=== PATIENT | female | born 1970 ===

== ENCOUNTER 2020-10-27 16:41 | Inpatient (IN) | payer MEDICAID ==
[2020-10-27] MEDS ORDERED: traZODone 100 MG TAB PO SCH (23:42)
[2020-10-27] MEDS ORDERED: hydrOXYzine PAMOATE 25 MG CAP PO PRN (23:42)
[2020-10-28 18:53] LABS: Bilirubin,Urine NEG (Negative); Blood,Urine NEG (Negative); Color,Urine Yellow (Yellow); Protein,Urine <15 mg/dL mg/dL (Negative); Urobilinogen,Urine < 2.0 mg/dL (<2.0)
[2020-10-28 19:07] LABS: RBC,Urine < 1.0 /HPF (0.0-6.0)
[2020-10-28 19:45] LABS: Basophils % (Auto) 0.6 % (0.0-1.8); Eosinophils # (Auto) 0.3 K/mm3 (0.0-0.4); Eosinophils % (Auto) 4.5 % (0.0-4.3); Hematocrit 41.8 % (30.3-42.9); Hemoglobin 14.2 gm/dl (10.1-14.3); Lymphocytes # (Auto) 2.8 K/mm3 (1.2-5.4); Lymphocytes % (Auto) 39.9 % (13.4-35.0); Mean Corpuscular HGB Conc 34 % (30-34); Mean Corpuscular Volume 87 fl (79-97); Monocytes # (Auto) 0.5 K/mm3 (0.0-0.8); Monocytes % (Auto) 6.8 % (0.0-7.3); Platelet Count 201 K/mm3 (140-440); Red Cell Distribution Width 14.4 % (13.2-15.2)
[2020-10-28 20:04] LABS: Alanine Aminotransferase 14 units/L (7-56); Albumin 4.1 g/dL (3.9-5); Blood Urea Nitrogen 15 mg/dL (7-17); Calcium 9.4 mg/dL (8.4-10.2); Chol/HDL Ratio 4.29 %; HDL Cholesterol 51 mg/dL (40-59); Hemolysis Index 12; LDL Cholesterol,Direct 161 mg/dL (50-130)
[2020-10-28 20:05] LABS: BUN/Creatinine Ratio 21
[2020-10-28] MEDS: MIRTAZAPINE 15 MG TAB PO SCH ×2 (21:03→21:14)
--- NOTE | 2020-10-29 09:37 | History and Physical Report ---
GP History & Physical - History of Present Illness Date of admission: 10/28/20 Date of Examination: 10/29/20 Reason for Admission: Danger to self, Failure of Outpatient Treatment History of Present Illness: Per Admission Note: Pt observed interacting appropriately with peer in the day room on mortgage underwriter's first encounter with pt. 50 y/o WF a&oX4. States, "I feel a lot better." Reports no suicide thought at the time of interview and was calm and cooperative. Noted with hx/o Hypothyroidism, Asthma,, left knee surgery, bipolar, schizoaffective d/o, COVID-19 + in August 2020. Pt noted with active UTI and started on Macrobid abx. Denies AV/H and none observed. End daily smoking of 1/2 pack of cigarette. Pt also reports abusing "Crack" cocaine and Marijuana with last use 2-3 weeks ago. No acute distress observed and none reported. Benjy Herrera is a 50y/o female patient who was admitted to [facility] for suicidal thoughts. During my interview with the patient she is calm, cooperative and pleasant. The patient states "I wanted to kill myself and didn't have a reason to live." She states she "feels much better." She denies SI/HI. When asked what has changed between now and her admission, she states "I don't know. I just don't feel suicidal anymore." The patient denies hallucinations of any kind. She denies any illicit drug use, alcohol or nicotine. She says she has a diagnosis of schizoaffective disorder and takes Invega Sustenna 156mg. The patient says she had her injection a few days ago. PAST PSYCHIATRIC HISTORY: Diagnoses: Schizoaffective Suicide attempts or Self-harm behavior: yes Prior psychiatric hospitalizations: yes Substance Abuse history: denies Previous psychiatric medications tried: invega Outpatient treatment: Denies PAST MEDICAL HISTORY: Diabetes Family Psychiatric History: None reported or documented SOCIAL HISTORY Marital Status: single Living Arrangements: [facility] Employment Status: Unemployed Access to guns/weapons: Denies Education: high school History of Abuse: Denies Legal History: Denies REVIEW OF SYSTEMS Constitutional: Negative for weight loss ENT: Negative for stridor Respiratory: Negative for cough or hemoptysis All other systems reviewed and are negative MENTAL STATUS EXAMINATION General Appearance and Behavior: Age appropriate, good hygiene, not wearing appropriate clothes, good eye contact, cooperative polite with questioning. Cooperation: Participating/engaged Psychomotor Behavior: Psychomotor normal Mood: "much better" Affect and affective range: Euthymic Thought Process: Goal directed Speech: Normal tone and pace Intellectual Functioning: Average Thought Content Suicidal Ideation: Denies Homicidal Ideation: Denies Hallucinations: Denies Delusions: None elicited Impulse Control: Impaired Insight and Judgment: Limited insight and judgment Memory: Normal Attention: Divided attention impaired Orientation: A/o x 3 Assessment and Plan (1) Major Depressive Disorder Current Visit: Yes Status: Acute Treatment Plan Patient admitted for inpatient psychiatric evaluation, medication adjustment and close monitoring The patient's behavior, mood, sleep and appetite will be closely monitored. Patient enrolled in individual and group therapeutic sessions and encouraged to attend. Patient provided with a safe and structured environment. Patient's physical health needs will be addressed by the Hospitalist. Hospitalist Consulted Labs including CBC, CMP, Lipid profile and Hemoglobin A1C levels ordered for baseline reference Social Assessment will be completed and the Cooker Cleaner will work with patient and family to ensure a suitable and safe disposition Medication adjustment will be made as clinically indicated Start Zoloft 25mg po daily Restart Home medications Usual Wellness Confucianism/Preservation: - Start Trazodone 50 mg po QHS & 50 mg po QHS PRN between 10 PM & 2 AM for insomnia - Start Melatonin 5 mg po QHS to promote circadian rhythm - Start Thelma-3 for brain health, reduce impulsivity, and as adjunctive treatment for mood disorder, continue upon discharge given overall benefits. - Start B1 prophylaxis with 200 mg po for 5 days The patient agreed on the treatment plan, understood the risk, benefit, alternative treatment, potential consequence of no treatment, and gave informed consent. Estimated days: 7 Post hospital care: primary care provider, psychiatric provider Legal Status: Voluntary Reaction to Hospitalization: Accepting Medications and Allergies Allergies Allergy/AdvReac Type Severity Reaction Status Date / Time No Known Allergies Allergy Unverified 10/27/20 16:47 Home Medications Medication Instructions Recorded Confirmed Last Taken Type Mirtazapine [Remeron] 15 mg PO HS 10/27/20 10/27/20 Unknown History hydrOXYzine PAMOATE [Vistaril] 25 mg PO Q6HR PRN 10/27/20 10/27/20 Unknown History traZODone [Desyrel] 100 mg PO QHS 10/27/20 10/27/20 Unknown History Levothyroxine [Synthroid] 25 mcg PO QAM 10/28/20 10/28/20 Unknown History Active Meds: Active Medications Hydroxyzine Pamoate (Hydroxyzine Pamoate 25 Mg Cap) 25 mg PO Q6H PRN PRN Reason: Anxiety Mirtazapine (Mirtazapine 15 Mg Tab) 15 mg PO QHS [facility] Last Admin: 10/28/20 21:14 Dose: Not Given Documented by: Trazodone HCl (Trazodone 100 Mg Tab) 100 mg PO QHS [facility] Last Admin: 10/28/20 21:02 Dose: 100 mg Documented by: Results - Results Labs/Vitals: Laboratory Last Values WBC 7.1 K/mm3 (4.5-11.0) 10/28/20 19:04 RBC 4.80 M/mm3 (3.65-5.03) 10/28/20 19:04 Hgb 14.2 gm/dl (10.1-14.3) 10/28/20 19:04 Hct 41.8 % (30.3-42.9) 10/28/20 19:04 MCV 87 fl (79-97) 10/28/20 19:04 MCH 30 pg (28-32) 10/28/20 19:04 MCHC 34 % (30-34) 10/28/20 19:04 RDW 14.4 % (13.2-15.2) 10/28/20 19:04 Plt Count 201 K/mm3 (140-440) 10/28/20 19:04 Lymph % (Auto) 39.9 % (13.4-35.0) H 10/28/20 19:04 [place] % (Auto) 6.8 % (0.0-7.3) 10/28/20 19:04 Eos % (Auto) 4.5 % (0.0-4.3) H 10/28/20 19:04 Baso % (Auto) 0.6 % (0.0-1.8) 10/28/20 19:04 Lymph # (Auto) 2.8 K/mm3 (1.2-5.4) 10/28/20 19:04 [place] # (Auto) 0.5 K/mm3 (0.0-0.8) 10/28/20 19:04 Eos # (Auto) 0.3 K/mm3 (0.0-0.4) 10/28/20 19:04 Baso # (Auto) 0.0 K/mm3 (0.0-0.1) 10/28/20 19:04 Seg Neutrophils % 48.2 % (40.0-70.0) 10/28/20 19:04 Seg Neutrophils # 3.4 K/mm3 (1.8-7.7) 10/28/20 19:04 Sodium 137 mmol/L (137-145) 10/28/20 19:04 Potassium 4.0 mmol/L (3.6-5.0) 10/28/20 19:04 Chloride 101.4 mmol/L (98-107) 10/28/20 19:04 Carbon Dioxide 27 mmol/L (22-30) 10/28/20 19:04 Anion Gap 13 mmol/L 10/28/20 19:04 BUN 15 mg/dL (7-17) 10/28/20 19:04 Creatinine 0.7 mg/dL (0.6-1.2) 10/28/20 19:04 Estimated GFR > 60 ml/min 10/28/20 19:04 BUN/Creatinine Ratio 21 % 10/28/20 19:04 Glucose 95 mg/dL (65-100) 10/28/20 19:04 POC Glucose 89 mg/dL (70-105) 10/29/20 06:48 Hemoglobin A1c 5.3 % (4-6) 10/28/20 19:04 Calcium 9.4 mg/dL (8.4-10.2) 10/28/20 19:04 Total Bilirubin < 0.20 mg/dL (0.1-1.2) 10/28/20 19:04 AST 14 units/L (5-40) 10/28/20 19:04 ALT 14 units/L (7-56) 10/28/20 19:04 Alkaline Phosphatase 97 units/L (35-129) 10/28/20 19:04 Total Protein 7.1 g/dL (6.3-8.2) 10/28/20 19:04 Albumin 4.1 g/dL (3.9-5) 10/28/20 19:04 Albumin/Globulin Ratio 1.4 % 10/28/20 19:04 Triglycerides 159 mg/dL (2-149) H 10/28/20 19:04 Cholesterol 219 mg/dL (50-199) H 10/28/20 19:04 LDL Cholesterol Direct 161 mg/dL (50-130) H 10/28/20 19:04 HDL Cholesterol 51 mg/dL (40-59) 10/28/20 19:04 Cholesterol/HDL Ratio 4.29 % 10/28/20 19:04 TSH 6.610 mlU/mL (0.270-4.200) H 10/28/20 19:04 Urine Color Yellow (Yellow) 10/27/20 18: Urine Turbidity Clear (Clear) 10/27/20 18: Urine pH 7.0 (5.0-7.0) 10/27/20 18: Ur Specific [place] 1.017 (1.003-1.030) 10/27/20 18: Urine Protein <15 mg/dl mg/dL (Negative) 10/27/20 18: Urine Glucose (UA) Neg mg/dL (Negative) 10/27/20 18: Urine Ketones Neg mg/dL (Negative) 10/27/20 18:29 Urine Blood Neg (Negative) 10/27/20 18:29 Urine Nitrite Neg (Negative) 10/27/20 18: Urine Bilirubin Neg (Negative) 10/27/20 18: Urine Urobilinogen < 2.0 mg/dL (<2.0) 10/27/20 18:29 Ur Leukocyte Esterase Neg (Negative) 10/27/20 18:29 Urine WBC (Auto) 1.0 /HPF (0.0-6.0) 10/27/20 18: Urine RBC (Auto) < 1.0 /HPF (0.0-6.0) 10/27/20 18: U Epithel Cells (Auto) 2.0 /HPF (0-13.0) 10/27/20 18:29 Last Vital Signs Temp 98.8 F 10/28/20 21:35 Pulse 81 10/28/20 21:35 Resp 16 10/28/20 21:35 BP 115/79 10/28/20 21:35 Pulse Ox 95 10/28/20 21:35 Physical Examination - Constitutional Vitals: Vital Signs Temp Pulse Resp BP Pulse Ox 98.8 F 81 16 115/79 95 10/28/20 21:35 10/28/20 21:35 10/28/20 21:35 10/28/20 21:35 10/28/20 21:35 Temperature -Last 24 Hours Temperature 98.8 F Mental Status Exam - Vital signs Last Vital Signs Temp 98.8 F 10/28/20 21:35 Pulse 81 10/28/20 21:35 Resp 16 10/28/20 21:35 BP 115/79 10/28/20 21:35 Pulse Ox 95 10/28/20 21:35 Physician Certification - Certification Statement Physician Certification Statement: This is an acknowledgement statement that BENJY HERRERA is a 50 year old F who requires inpatient psychiatric admission for treatment which could reasonably be expected to improve the patient's condition for Estimated period of time patient will need to remain in the hospital: [ ] Plan for post-hospital care: [ ]
[2020-10-29] MEDS ORDERED: hydrOXYzine PAMOATE 25 MG CAP PO PRN (09:42)
[2020-10-29] MEDS ORDERED: NITROFURANTOIN MONOHYD/M-CRYST 100 MG CAP PO SCH (11:00)
[2020-10-29] MEDS: SERTRALINE 25 MG TAB PO SCH (12:40)
[2020-10-29] MEDS: LEVOTHYROXINE 25 MCG TAB PO SCH (12:40)
[2020-10-29] MEDS: traZODone 100 MG TAB PO SCH (21:46)
[2020-10-29] MEDS: MIRTAZAPINE 15 MG TAB PO SCH (21:46)
[2020-10-30] MEDS: LEVOTHYROXINE 25 MCG TAB PO SCH (05:30)
--- NOTE | 2020-10-30 09:05 | Progress Note ---
Subjective Date of service: 10/30/20 Principal diagnosis: Schizophrenia Subjective Comment: Per Nurse Note: pt spent the evening in activity room interacting with peers and coloring, pt is alert and orientedx4, calm and cooperative, able to make needs known, bright affect, stable mood, reported feeling better, denies si/hi, denies a/v/h, selective with medication, refused trazodone, pt stated that trazodone makes her leg to jump, good appetite, no distress noted, will monitor for safety. The patient was seen today, she is sitting in the dayroom. She is a/o x 3. She is calm, cooperative and pleasant. She says she is doing "great, wonderful." She says "I don't want to kill myself and I'm not having hallucinations." REVIEW OF SYSTEMS Constitutional: Negative for weight loss ENT: Negative for stridor Respiratory: Negative for cough or hemoptysis All other systems reviewed and are negative MENTAL STATUS EXAMINATION General Appearance and Behavior: Age appropriate, good hygiene, not wearing appropriate clothes, good eye contact, cooperative polite with questioning. Cooperation: Participating/engaged Psychomotor Behavior: Psychomotor normal Mood: "much better" Affect and affective range: Euthymic Thought Process: Goal directed Speech: Normal tone and pace Intellectual Functioning: Average Thought Content Suicidal Ideation: Denies Homicidal Ideation: Denies Hallucinations: Denies Delusions: None elicited Impulse Control: Impaired Insight and Judgment: Limited insight and judgment Memory: Normal Attention: Divided attention impaired Orientation: A/o x 3 Assessment and Plan (1) Major Depressive Disorder (2) Schizophrenia Treatment Plan Patient admitted for inpatient psychiatric evaluation, medication adjustment and close monitoring The patient's behavior, mood, sleep and appetite will be closely monitored. Patient enrolled in individual and group therapeutic sessions and encouraged to attend. Patient provided with a safe and structured environment. Patient's physical health needs will be addressed by the Hospitalist. Hospitalist Consulted Labs including CBC, CMP, Lipid profile and Hemoglobin A1C levels ordered for baseline reference Social Assessment will be completed and the Wall Man will work with patient and family to ensure a suitable and safe disposition Medication adjustment will be made as clinically indicated Start Zoloft 25mg po daily yesterday Usual Wellness Congregation/Preservation: - Start Trazodone 50 mg po QHS & 50 mg po QHS PRN between 10 PM & 2 AM for insomnia - Start Melatonin 5 mg po QHS to promote circadian rhythm - Start Weiner-3 for brain health, reduce impulsivity, and as adjunctive treatment for mood disorder, continue upon discharge given overall benefits. - Start B1 prophylaxis with 200 mg po for 5 days The patient agreed on the treatment plan, understood the risk, benefit, alternative treatment, potential consequence of no treatment, and gave informed consent. Estimated days: 1 Post hospital care: primary care provider, psychiatric provider Case staffed with Dr. Gibson Medications and Allergies Allergies Allergy/AdvReac Type Severity Reaction Status Date / Time No Known Allergies Allergy Unverified 10/27/20 16:47 Home Medications Medication Instructions Recorded Confirmed Last Taken Type Mirtazapine [Remeron] 15 mg PO HS 10/27/20 10/27/20 Unknown History hydrOXYzine PAMOATE [Vistaril] 25 mg PO Q6HR PRN 10/27/20 10/27/20 Unknown History traZODone [Desyrel] 100 mg PO QHS 10/27/20 10/27/20 Unknown History Levothyroxine [Synthroid] 25 mcg PO QAM 10/28/20 10/28/20 Unknown History Active Meds: Active Medications Hydroxyzine Pamoate (Hydroxyzine Pamoate 25 Mg Cap) 25 mg PO Q6H PRN PRN Reason: Anxiety Levothyroxine Sodium (Levothyroxine 25 Mcg Tab) 25 mcg PO 0600 [facility] Last Admin: 10/30/20 05:30 Dose: 25 mcg Documented by: Mirtazapine (Mirtazapine 15 Mg Tab) 15 mg PO HS [facility] Last Admin: 10/29/20 21:46 Dose: 15 mg Documented by: Sertraline HCl (Sertraline 25 Mg Tab) 25 mg PO QDAY [facility] Last Admin: 10/29/20 12:40 Dose: 25 mg Documented by: Trazodone HCl (Trazodone 100 Mg Tab) 100 mg PO QHS [facility] Last Admin: 10/29/20 21:46 Dose: Not Given Documented by: Results - Results Labs/Vitals: Laboratory Last Values WBC 7.1 K/mm3 (4.5-11.0) 10/28/20 19:04 RBC 4.80 M/mm3 (3.65-5.03) 10/28/20 19:04 Hgb 14.2 gm/dl (10.1-14.3) 10/28/20 19:04 Hct 41.8 % (30.3-42.9) 10/28/20 19:04 MCV 87 fl (79-97) 10/28/20 19:04 MCH 30 pg (28-32) 10/28/20 19:04 MCHC 34 % (30-34) 10/28/20 19:04 RDW 14.4 % (13.2-15.2) 10/28/20 19:04 Plt Count 201 K/mm3 (140-440) 10/28/20 19:04 Lymph % (Auto) 39.9 % (13.4-35.0) H 10/28/20 19:04 [place] % (Auto) 6.8 % (0.0-7.3) 10/28/20 19:04 Eos % (Auto) 4.5 % (0.0-4.3) H 10/28/20 19:04 Baso % (Auto) 0.6 % (0.0-1.8) 10/28/20 19:04 Lymph # (Auto) 2.8 K/mm3 (1.2-5.4) 10/28/20 19:04 [place] # (Auto) 0.5 K/mm3 (0.0-0.8) 10/28/20 19:04 Eos # (Auto) 0.3 K/mm3 (0.0-0.4) 10/28/20 19:04 Baso # (Auto) 0.0 K/mm3 (0.0-0.1) 10/28/20 19:04 Seg Neutrophils % 48.2 % (40.0-70.0) 10/28/20 19:04 Seg Neutrophils # 3.4 K/mm3 (1.8-7.7) 10/28/20 19:04 Sodium 137 mmol/L (137-145) 10/28/20 19:04 Potassium 4.0 mmol/L (3.6-5.0) 10/28/20 19:04 Chloride 101.4 mmol/L (98-107) 10/28/20 19:04 Carbon Dioxide 27 mmol/L (22-30) 10/28/20 19:04 Anion Gap 13 mmol/L 10/28/20 19:04 BUN 15 mg/dL (7-17) 10/28/20 19:04 Creatinine 0.7 mg/dL (0.6-1.2) 10/28/20 19:04 Estimated GFR > 60 ml/min 10/28/20 19:04 BUN/Creatinine Ratio 21 % 10/28/20 19:04 Glucose 95 mg/dL (65-100) 10/28/20 19:04 POC Glucose 100 mg/dL (70-105) 10/29/20 19:41 Hemoglobin A1c 5.3 % (4-6) 10/28/20 19:04 Calcium 9.4 mg/dL (8.4-10.2) 10/28/20 19:04 Total Bilirubin < 0.20 mg/dL (0.1-1.2) 10/28/20 19:04 AST 14 units/L (5-40) 10/28/20 19:04 ALT 14 units/L (7-56) 10/28/20 19:04 Alkaline Phosphatase 97 units/L (35-129) 10/28/20 19:04 Total Protein 7.1 g/dL (6.3-8.2) 10/28/20 19:04 Albumin 4.1 g/dL (3.9-5) 10/28/20 19:04 Albumin/Globulin Ratio 1.4 % 10/28/20 19:04 Triglycerides 159 mg/dL (2-149) H 10/28/20 19:04 Cholesterol 219 mg/dL (50-199) H 10/28/20 19:04 LDL Cholesterol Direct 161 mg/dL (50-130) H 10/28/20 19:04 HDL Cholesterol 51 mg/dL (40-59) 10/28/20 19:04 Cholesterol/HDL Ratio 4.29 % 10/28/20 19:04 TSH 6.610 mlU/mL (0.270-4.200) H 10/28/20 19:04 Urine Color Yellow (Yellow) 10/27/20 18: Urine Turbidity Clear (Clear) 10/27/20 18: Urine pH 7.0 (5.0-7.0) 10/27/20 18: Ur Specific [place] 1.017 (1.003-1.030) 10/27/20 18: Urine Protein <15 mg/dl mg/dL (Negative) 10/27/20 18: Urine Glucose (UA) Neg mg/dL (Negative) 10/27/20 18:29 Urine Ketones Neg mg/dL (Negative) 10/27/20 18: Urine Blood Neg (Negative) 10/27/20 18: Urine Nitrite Neg (Negative) 10/27/20 18: Urine Bilirubin Neg (Negative) 10/27/20 18: Urine Urobilinogen < 2.0 mg/dL (<2.0) 10/27/20 18: Ur Leukocyte Esterase Neg (Negative) 10/27/20 18: Urine WBC (Auto) 1.0 /HPF (0.0-6.0) 10/27/20 18: Urine RBC (Auto) < 1.0 /HPF (0.0-6.0) 10/27/20 18: U Epithel Cells (Auto) 2.0 /HPF (0-13.0) 10/27/20 18:29 Last Vital Signs Temp 97.6 F 10/29/20 22:00 Pulse 77 10/29/20 22:00 Resp 16 10/29/20 22:00 BP 103/70 10/29/20 22:00 Pulse Ox 97 10/29/20 22:00
[2020-10-30] MEDS: SERTRALINE 25 MG TAB PO SCH (09:39)
--- NOTE | 2020-10-30 10:29 | Consultation ---
History of Present Illness - Reason for Consult Consult date: 10/30/20 Management of medical conditions - History of Present Illness Patient is a 50-year-old female with history of schizoaffective disorder and admitted to the psychiatric unit and a medical consult was requested for management of medical conditions. Patient is alert and oriented and she offers no specific complaints at this time. She is a smoker. She denies any cough chest pain or shortness of breath Past History Past Medical History: hypothyroidism, other (Asthma) Past Surgical History: No surgical history Social history: smoking Family history: no significant family history Medications and Allergies Allergies Allergy/AdvReac Type Severity Reaction Status Date / Time No Known Allergies Allergy Unverified 10/27/20 16:47 Home Medications Medication Instructions Recorded Confirmed Last Taken Type Mirtazapine [Remeron] 15 mg PO 10/27/20 10/27/20 Unknown History hydrOXYzine PAMOATE [Vistaril] 25 mg PO Q6HR PRN 10/27/20 10/27/20 Unknown History traZODone [Desyrel] 100 mg PO QHS 10/27/20 10/27/20 Unknown History Levothyroxine [Synthroid] 25 mcg PO QAM 10/28/20 10/28/20 Unknown History Active Meds: Active Medications Hydroxyzine Pamoate (Hydroxyzine Pamoate 25 Mg Cap) 25 mg PO Q6H PRN PRN Reason: Anxiety Levothyroxine Sodium (Levothyroxine 25 Mcg Tab) 25 mcg PO 0600 [facility] Last Admin: 10/30/20 05:30 Dose: 25 mcg Documented by: Mirtazapine (Mirtazapine 15 Mg Tab) 15 mg PO [facility] Last Admin: 10/29/20 21:46 Dose: 15 mg Documented by: Sertraline HCl (Sertraline 25 Mg Tab) 25 mg PO QDAY [facility] Last Admin: 10/30/20 09:39 Dose: 25 mg Documented by: Trazodone HCl (Trazodone 100 Mg Tab) 100 mg PO QHS [facility] Last Admin: 10/29/20 21:46 Dose: Not Given Documented by: Review of Systems Constitutional: no weight loss, no fever, no chills, no fatigue, no weakness Ears, nose, mouth and throat: no ear pain, no sore throat, no headache Cardiovascular: no chest pain, no palpitations, no syncope, no lightheadedness, no shortness of breath, no high blood pressure Respiratory: no cough, no shortness of breath, no sleep apnea Gastrointestinal: no abdominal pain, no nausea, no vomiting, no diarrhea, no constipation, no melena Genitourinary Female: no dysuria, no urinary frequency Rectal: no pain Musculoskeletal: no neck pain Integumentary: no rash, no pruritis Neurological: no head injury, no paralysis, no weakness, no seizures Exam - Constitutional Vitals: Temp Pulse Resp BP Pulse Ox 98.8 F 79 16 119/84 94 10/30/20 08:25 10/30/20 08:25 10/30/20 08:25 10/30/20 08:25 10/30/20 08:25 General appearance: Present: no acute distress, well-nourished - EENT Eyes: Present: PERRL, EOM intact ENT: hearing intact, clear oral mucosa, no thrush - Neck Neck: Present: supple, normal ROM. Absent: masses or JVD - Respiratory Respiratory effort: normal Respiratory: bilateral: CTA, negative: rhonchi, wheezing - Cardiovascular Rhythm: regular Heart Sounds: Present: S1 & S2 - Extremities Extremities: No edema - Abdominal General gastrointestinal: Present: soft, non-tender. Absent: hepatomegaly, splenomegaly Female genitourinary: Absent: deferred - Integumentary Integumentary: Present: clear - Musculoskeletal Musculoskeletal: strength equal bilaterally - Psychiatric Psychiatric: appropriate mood/affect - Neurologic Neurologic: no focal deficits Results - Labs CBC & Chem 7: 10/28/20 19:04 10/28/20 19:04 Assessment and Plan - Patient Problems (1) History of asthma Current Visit: Yes Status: Chronic Plan to address problem: Not in exacerbation Continue albuterol inhaler as needed (2) Tobacco abuse Current Visit: Yes Status: Chronic Plan to address problem: Smoking cessation counseling was done (3) Hyperlipidemia LDL goal <160 Current Visit: Yes Status: Chronic Plan to address problem: Lipid profile results reviewed Continue low-fat diet and follow-up with PCP (4) Hypothyroidism Current Visit: Yes Status: Chronic Qualifiers: Hypothyroidism type: acquired Qualified Code(s): E03.9 - Hypothyroidism, unspecified Plan to address problem: Continue Synthroid 25 mcg daily Serum TSH is 6.61
[2020-10-30] MEDS: traZODone 100 MG TAB PO SCH (21:05)
[2020-10-30] MEDS: MIRTAZAPINE 15 MG TAB PO SCH (21:06)
[2020-10-31] MEDS: LEVOTHYROXINE 25 MCG TAB PO SCH (05:59)
[2020-10-31 06:56] VITALS: BP 114/81
--- NOTE | 2020-10-31 08:52 | Discharge Summary ---
Providers - Providers Date of Admission: 10/28/20 18:12 Date of discharge: 10/31/20 Attending physician: MARYCRUZ MARTELL MD 10/27/20 17:44 Consult to Physician [CONS] Routine Comment: Consulting Provider: MARKELL ROBISON Physician Instructions: Reason For Exam: manage medical conditions Primary care physician: PATROL SUPERVISOR Hospitalization Reason for admission: SI Admitting Diagnosis: F20.9 - SCHIZOPHRENIA, UNSPECIFIED Condition: Stable Hospital course: The patient was provided inpatient psychiatric treatment with safe and supportive care, medication adjustment, adverse effect monitoring, medical evaluations, medical treatments, assessment and psycho-education. The patient's mood, cognition, behavior, moral support are improved and stabilized. St the time of discharge, the patient had no endangering behavior and no debilitating adverse effects. The patient agreed on potential consequences of no treatment and gave informed consent. Disposition: - TO HOME OR SELFCARE Time spent for discharge: 36 Allergies/Adverse Reactions: Allergies No Known Allergies Allergy (Unverified 10/27/20 16:47) Vital Signs: Last Vital Signs Temp 98.1 F 10/31/20 06:42 Pulse 77 10/31/20 06:42 Resp 20 10/31/20 06:42 BP 114/81 10/31/20 06:42 Pulse Ox 94 10/31/20 06:42 Last Lab: Laboratory Last Values WBC 7.1 K/mm3 (4.5-11.0) 10/28/20 19:04 RBC 4.80 M/mm3 (3.65-5.03) 10/28/20 19:04 Hgb 14.2 gm/dl (10.1-14.3) 10/28/20 19:04 Hct 41.8 % (30.3-42.9) 10/28/20 19:04 MCV 87 fl (79-97) 10/28/20 19:04 MCH 30 pg (28-32) 10/28/20 19:04 MCHC 34 % (30-34) 10/28/20 19:04 RDW 14.4 % (13.2-15.2) 10/28/20 19:04 Plt Count 201 K/mm3 (140-440) 10/28/20 19:04 Lymph % (Auto) 39.9 % (13.4-35.0) H 10/28/20 19:04 [place] % (Auto) 6.8 % (0.0-7.3) 10/28/20 19:04 Eos % (Auto) 4.5 % (0.0-4.3) H 10/28/20 19:04 Baso % (Auto) 0.6 % (0.0-1.8) 10/28/20 19:04 Lymph # (Auto) 2.8 K/mm3 (1.2-5.4) 10/28/20 19:04 [place] # (Auto) 0.5 K/mm3 (0.0-0.8) 10/28/20 19:04 Eos # (Auto) 0.3 K/mm3 (0.0-0.4) 10/28/20 19:04 Baso # (Auto) 0.0 K/mm3 (0.0-0.1) 10/28/20 19:04 Seg Neutrophils % 48.2 % (40.0-70.0) 10/28/20 19:04 Seg Neutrophils # 3.4 K/mm3 (1.8-7.7) 10/28/20 19:04 Sodium 137 mmol/L (137-145) 10/28/20 19:04 Potassium 4.0 mmol/L (3.6-5.0) 10/28/20 19:04 Chloride 101.4 mmol/L (98-107) 10/28/20 19:04 Carbon Dioxide 27 mmol/L (22-30) 10/28/20 19:04 Anion Gap 13 mmol/L 10/28/20 19:04 BUN 15 mg/dL (7-17) 10/28/20 19:04 Creatinine 0.7 mg/dL (0.6-1.2) 10/28/20 19:04 Estimated GFR > 60 ml/min 10/28/20 19:04 BUN/Creatinine Ratio 21 % 10/28/20 19:04 Glucose 95 mg/dL (65-100) 10/28/20 19:04 POC Glucose 100 mg/dL (70-105) 10/29/20 19:41 Hemoglobin A1c 5.3 % (4-6) 10/28/20 19:04 Calcium 9.4 mg/dL (8.4-10.2) 10/28/20 19:04 Total Bilirubin < 0.20 mg/dL (0.1-1.2) 10/28/20 19:04 AST 14 units/L (5-40) 10/28/20 19:04 ALT 14 units/L (7-56) 10/28/20 19:04 Alkaline Phosphatase 97 units/L (35-129) 10/28/20 19:04 Total Protein 7.1 g/dL (6.3-8.2) 10/28/20 19:04 Albumin 4.1 g/dL (3.9-5) 10/28/20 19:04 Albumin/Globulin Ratio 1.4 % 10/28/20 19:04 Triglycerides 159 mg/dL (2-149) H 10/28/20 19:04 Cholesterol 219 mg/dL (50-199) H 10/28/20 19:04 LDL Cholesterol Direct 161 mg/dL (50-130) H 10/28/20 19:04 HDL Cholesterol 51 mg/dL (40-59) 10/28/20 19:04 Cholesterol/HDL Ratio 4.29 % 10/28/20 19:04 TSH 6.610 mlU/mL (0.270-4.200) H 10/28/20 19:04 Urine Color Yellow (Yellow) 10/27/20 18: Urine Turbidity Clear (Clear) 10/27/20 18: Urine pH 7.0 (5.0-7.0) 10/27/20 18: Ur Specific [place] 1.017 (1.003-1.030) 10/27/20 18: Urine Protein <15 mg/dl mg/dL (Negative) 10/27/20 18: Urine Glucose (UA) Neg mg/dL (Negative) 10/27/20 18: Urine Ketones Neg mg/dL (Negative) 10/27/20 18: Urine Blood Neg (Negative) 10/27/20 18: Urine Nitrite Neg (Negative) 10/27/20 18: Urine Bilirubin Neg (Negative) 10/27/20 18: Urine Urobilinogen < 2.0 mg/dL (<2.0) 10/27/20 18:29 Ur Leukocyte Esterase Neg (Negative) 10/27/20 18: Urine WBC (Auto) 1.0 /HPF (0.0-6.0) 10/27/20 18:29 Urine RBC (Auto) < 1.0 /HPF (0.0-6.0) 10/27/20 18:29 U Epithel Cells (Auto) 2.0 /HPF (0-13.0) 10/27/20 18:29 Core Measure Documentation - Palliative Care Palliative Care/ Comfort Measures: Not Applicable - Core Measures Any of the following diagnoses?: none Exam - Constitutional Vitals: Temp Pulse Resp BP Pulse Ox 98.1 F 77 20 114/81 94 10/31/20 06:42 10/31/20 06:42 10/31/20 06:42 10/31/20 06:42 10/31/20 06:42 General appearance: Present: no acute distress - EENT Eyes: Present: PERRL, EOM intact ENT: hearing intact, clear oral mucosa - Neck Neck: Present: supple, normal ROM - Respiratory Respiratory effort: normal Plan Activity: advance as tolerated Weight Bearing Status: Weight Bear as Tolerated Care Plan Goals: Maintain good and stable mental health Plan of Treatment: The patient should be compliant with medications, not to use drugs, and not to drink alcohol. The patient understands that if suicidal ideas, homicidal ideas or any endangering feeling arise, the patient should seek assistance including, but not limited to crisis hotline, and emergency room. Health Concerns: Hx of asthma, hyperlipidemia Assessment: Schizophrenia Follow up with: PRIMARY CARE, [Primary Care Provider] - 7 Days Prescriptions: traZODone [Desyrel] 100 mg PO QHS #30 Sertraline [Zoloft] 25 mg PO QDAY #30 tablet
[2020-10-31] MEDS: SERTRALINE 25 MG TAB PO SCH (09:28)
== END 2020-10-31 17:30 | disposition home or self-care (01) | DRG 885 ==
LOC: 3A 16:41 → UNDOADMIN 16:41 → 5A 10-28 18:12
PROVIDERS: ADMIT Psychiatry & Neurology Psychiatry; ATTEND Psychiatry & Neurology Psychiatry
DX: F25.9 Schizoaffective disorder, unspecified (principal); F32.9 Major depressive disorder, single episode, unspecified; J45.909 Unspecified asthma, uncomplicated; E78.5 Hyperlipidemia, unspecified; E03.9 Hypothyroidism, unspecified; F17.200 Nicotine dependence, unspecified, uncomplicated; Z71.6 Tobacco abuse counseling; Z56.0 Unemployment, unspecified
CPT/HCPCS: 36415; 80053; 80061; 81001; 82962; 83036; 84443; 85025; G0378